=== PATIENT | female | born 1935 | race African-American/Black ===

== ENCOUNTER 2016-05-18 19:36 | Emergency (ER) | payer OTHER ==
[~2016-05-18] VITALS: Ht 162.6 cm; Wt 66.7 kg
[~2016-05-18 19:36] MED LIST: BP PILL; LASIX 20 MG TAB20 MG PO; MOBIC7.5 MG PO; NORCO 5-325 TA1 EACH PO
[2016-05-18] MEDS ORDERED: MS CONTIN15 MG PO (19:43)
[2016-05-18] MEDS ORDERED: PROTONIX40 M1 PO (19:43)
[2016-05-18] MEDS ORDERED: HYDROCHLOROTH12.5 M1 PO (19:44)
[2016-05-18] MEDS ORDERED: SINGULAIR 10 MG10 MG PO (19:44)
[2016-05-18] MEDS ORDERED: COZAAR 50 MG TA50 M2 PO (19:45)
[2016-05-18] MEDS ORDERED: K-DUR 20 MEQ T20 MEQ PO (19:45)
[2016-05-18] MEDS ORDERED: MIRALAX17 GM PO (19:46)
[2016-05-18] MEDS ORDERED: TOPROL XL25 MG PO (19:47)
[2016-05-18] MEDS ORDERED: BACLOFEN20 MG PO (19:47)
[2016-05-18] MEDS ORDERED: LEXAPRO20 MG PO (19:48)
[2016-05-18] MEDS ORDERED: DEMADEX20 MG PO (19:48)
[2016-05-18] MEDS ORDERED: NORCO 5-325 TA1 EACH PO (20:36)
[2016-05-18 21:46] VITALS: BP 140/62
== END 2016-05-18 21:48 | disposition home or self-care (01) ==
LOC: ER 19:36
DX: S42.201A Unspecified fracture of upper end of right humerus, initial encounter for closed fracture (principal); M25.531 Pain in right wrist; I10 Essential (primary) hypertension; Z96.653 Presence of artificial knee joint, bilateral; Z96.612 Presence of left artificial shoulder joint; Z88.8 Allergy status to other drugs, medicaments and biological substances; W10.9XXA Fall (on) (from) unspecified stairs and steps, initial encounter; Y93.89 Activity, other specified; Y92.89 Other specified places as the place of occurrence of the external cause; Y99.8 Other external cause status

== ENCOUNTER 2016-06-09 12:01 | Emergency (ER) | payer OTHER ==
[~2016-06-09] VITALS: Ht 162.6 cm; Wt 63.5 kg
--- NOTE | ~2016-06-09 | EKG ---
[place] [address] [facility] [employer] [place] [address] ELECTROCARDIOGRAM REPORT Name: MALINA DONIS Room #: [facility]ITAL[facility]icol[facility] [id number] Admission: 06/09/16 Attend Phys: Discharge: Date of : 39 Report #: [id number] THIS REPORT FOR: //name// [facility] ED Test Date: 2016-06-09 Test Time: 12:20:32 Pat Name: MALINA DONIS Department: Room: Gender: F Straightener And Aligner: marjorie : 1935 Requested By: Ar Rodriguez Order Number: [id number] MD: Eleazar Collazo Measurements Intervals Elmer Rate: 64 P: 49 CA: 170 QRS: -5 QRSD: 99 T: 7 QT: 478 QTc: 494 Interpretive Statements Sinus rhythm Atrial premature complex Probable left ventricular hypertrophy Borderline prolonged QT interval Baseline wander in lead(s) I,II,aVR Compared to ECG 10/28/2015 02:29:47 Atrial premature complex(es) now present Electronically Signed On 06-09-2016 13:57:22 MECHANICAL MAINTENANCE TECHNICIAN by Eleazar Collazo [email or web address] <ELECTRONICALLY SIGNED> By: Eleazar Collazo MD, [facility] 06/09/16 1357 1220 1220 Eleazar Collazo MD, [facility] /EPI
[~2016-06-09 12:01] MED LIST changes: +BACLOFEN20 MG PO; +COZAAR 50 MG TA50 M2 PO; +DEMADEX20 MG PO; +HYDROCHLOROTH12.5 M1 PO; +K-DUR 20 MEQ T20 MEQ PO; +LEXAPRO20 MG PO; +MIRALAX17 GM PO; +MS CONTIN15 MG PO; +PROTONIX40 M1 PO; +SINGULAIR 10 MG10 MG PO; +TOPROL XL25 MG PO
[2016-06-09 13:40] LABS: ANION GAP 11 mmol/L (7-16); BUN 34 mg/dL (7-18); CALCIUM 9.9 mg/dL (8.5-10.1); CHLORIDE 106 mmol/L (98-107); CO2 31 mmol/L (21-32); CREATININE 1.2 mg/dL (0.6-1.3); GLUCOSE 93 mg/dL (70-99); SODIUM 148 mmol/L (136-145)
[2016-06-09 13:41] LABS: ABSOLUTE NEUTROPHILS 2.8 thou/uL (1.4-8.2); EOSINOPHILS 1.3 % (0.0-3.0); HEMOGLOBIN 12.7 gm/dL (12.0-15.0); LYMPHOCYTES 22.1 % (24.0-44.0); MCH 28.8 pg (26.0-34.0); MCHC 33.4 % (28.0-37.0); MCV 86.3 fL (80.0-100.0); MONOCYTES 7.9 % (1.0-8.0); PLATELET COUNT 197 thou/uL (150-400); POLYS 67.7 % (36.0-66.0); RBC 4.41 mil/uL (4.20-5.00); RDW 13.8 % (10.5-14.5); WBC 4.2 thou/uL (4.0-11.0)
[2016-06-09 13:42] LABS: MANUAL DIFF NO
[2016-06-09 13:49] LABS: ALBUMIN 4.2 g/dL (3.4-5.0); ALKALINE PHOSPHATASE 145 U/L (46-116); MAGNESIUM 2.3 mg/dL (1.8-2.4); SGOT 16 U/L (15-37); SGPT 18 U/L (30-65); TOTAL BILIRUBIN 0.6 mg/dL (<0.1-1.0); TROPONIN-I < 0.04 ng/mL (<0.04-0.07)
[2016-06-09 14:48] LABS: URINE BILIRUBIN NEGATIVE (Negative); URINE BLOOD NEGATIVE (Negative); URINE COLOR YELLOW; URINE GLUCOSE-RANDOM* NEGATIVE (Negative); URINE KETONES 1+ (Negative); URINE LEUKOCYTES-REFLEX NEGATIVE (Negative); URINE PROTEIN (DIPSTICK) NEGATIVE (Negative); URINE UROBILINOGEN 0.2 E.U./dl (0.2-1.0)
[2016-06-09 23:38] VITALS: BP 138/57
== END 2016-06-09 23:38 | disposition short-term general hospital (02) ==
LOC: ER 12:01
PROVIDERS: Emergency Medicine
DX: R41.0 Disorientation, unspecified (principal); F91.8 Other conduct disorders; I10 Essential (primary) hypertension; Z88.8 Allergy status to other drugs, medicaments and biological substances